=== PATIENT | female | born 1955 | race Caucasian/White ===

== ENCOUNTER 2017-06-18 14:15 | Emergency (ER) | payer MEDICAID ==
[~2017-06-18] VITALS: Ht 160 cm; Wt 43.2 kg
[~2017-06-18 14:15] MED LIST: ASPI81TA35 PO; CARV3.122 PO; CITA20TA11 PO; CLOP75TA33 PO; Glucose test strips MC; LANC-509 TP; LANS30CA56 PO; LEVO50TA8 PO; LISI2.5T2 PO; MEGE400O PO; NPH SQ
[2017-06-18 14:43] LABS: CLARITY,URINE CLEAR (Clear); COLOR,URINE YELLOW (Yellow); GLUCOSE, URINE NEGATIVE (Neg); KETONES,URINE NEGATIVE (Neg); LEUKOCYTE ESTERASE ,URINE NEGATIVE (Neg); NITRITES, URINE NEGATIVE (Neg); OCCULT BLOOD,URINE NEGATIVE (Neg); PH,URINE 5.5 (4.8-8.0); PROTEIN,URINE NEGATIVE (Neg); UROBILINOGEN,URINE 0.2 E.U/dL (0.2-1.0)
[2017-06-18 14:48] LABS: UA COLLECTION TYPE CLN CATCH MIDSTREAM
[2017-06-18] MEDS ORDERED: normal saline 1000ML IV soln IVB ONE (15:10)
[2017-06-18 15:31] LABS: BASOPHILS % (AUTO) 0.5 % (0-1); EOSINOPHILS # (AUTO) 0.1 X10'3 (0-0.9); EOSINOPHILS % (AUTO) 1.7 % (0-6); HEMATOCRIT 42.1 % (35.0-45.0); HEMOGLOBIN 14.4 g/dl (12.0-16.0); LYMPHOCYTES # (AUTO) 2.3 X10'3 (1.1-4.8); LYMPHOCYTES % (AUTO) 41.8 % (21-51); MEAN CORPUSCULAR HEMOGLOBIN 33.4 PG (27.0-31.0); MEAN CORPUSCULAR HGB CONC 34.3 % (33.0-36.5); MEAN CORPUSCULAR VOLUME 97.4 FL (78-98); MEAN PLATELET VOLUME 6.8 FL (7.4-10.4); MONOCYTES # (AUTO) 0.4 X10'3 (0-0.9); MONOCYTES % (AUTO) 6.3 % (2-12); NEUTROPHILS # (AUTO) 2.7 X10'3 (1.8-7.7); NEUTROPHILS % (AUTO) 49.7 % (42-75); PLATELET COUNT 144 X10'3 (140-440); RED BLOOD COUNT 4.32 X10'6 (4.20-5.60); RED CELL DISTRIBUTION WIDTH 14.7 % (11.5-14.5); WHITE BLOOD COUNT 5.5 X10'3 (4.5-11.0)
[2017-06-18 15:46] LABS: ALANINE AMINOTRANSFERASE 44 U/L (12-78); ALBUMIN 3.8 G/DL (3.4-5.0); ALBUMIN/GLOBULIN RATIO 0.9 (1.1-1.5); ALKALINE PHOSPHATASE 116 IU/L (46-116); ANION GAP 6 (8-16); ASPARTATE AMINO TRANSFERASE 40 U/L (10-37); BILIRUBIN,TOTAL 0.5 MG/DL (0.1-1.0); BLOOD UREA NITROGEN 20 MG/DL (7-18); CALCIUM 9.4 MG/DL (8.5-10.1); CHLORIDE 101 MMOL/L (99-107); GLUCOSE 259 MG/DL (70-104); LIPASE < 50 U/L (73-393); POTASSIUM 4.4 MMOL/L (3.5-5.1); SODIUM 137 MMOL/L (135-145); TOTAL CARBON DIOXIDE 29.9 MMOL/L (24-32); TOTAL PROTEIN 8.2 G/DL (6.4-8.2); eGFR 73 ML/MIN
[2017-06-18] MEDS ORDERED: iohexol 300mg/ml 100ml inj. ONE (15:55)
[2017-06-18 15:59] VITALS: BP 153/93
== END 2017-06-18 16:01 | disposition left against medical advice (07) ==
LOC: ER 14:15
DX: R10.30 Lower abdominal pain, unspecified (principal); R39.15 Urgency of urination; R30.9 Painful micturition, unspecified; R50.9 Fever, unspecified; R11.2 Nausea with vomiting, unspecified; I25.10 Atherosclerotic heart disease of native coronary artery without angina pectoris; I11.0 Hypertensive heart disease with heart failure; I50.9 Heart failure, unspecified; I49.9 Cardiac arrhythmia, unspecified; I48.91 Unspecified atrial fibrillation; Z79.899 Other long term (current) drug therapy; Z98.890 Other specified postprocedural states; Z79.82 Long term (current) use of aspirin
CPT/HCPCS: 36415; 80053; 81003; 83690; 85025; 99284; J7030; Q9967

== ENCOUNTER → 2020-12-31 | Outpatient (CLI) | payer MEDICAID ==
[~2020-12-31] MED LIST changes: -CITA20TA11 PO; +CITA20TA28 PO; +LISI2.5T14 PO; -LISI2.5T2 PO
[2021-01-04 10:38] LABS: TOTAL HEMOGLOBIN 13.3 G/dl (12.0-16.0)
== END | disposition home or self-care (01) ==
LOC: RT 15:16 → EDBD 15:16
PROVIDERS: ATTEND Internal Medicine Cardiovascular Disease
DX: M19.012 Primary osteoarthritis, left shoulder (principal); M85.80 Other specified disorders of bone density and structure, unspecified site; Z79.899 Other long term (current) drug therapy
CPT/HCPCS: 71046; 85018; 94010; 94727; 94729